=== PATIENT | male | born 1950 | race Caucasian/White ===

== ENCOUNTER → 2022-05-12 | Outpatient (CLI) | payer MEDICARE ==
[~2022-05-12] MED LIST: GLIPIZIDE2.5 MG PO; HYDROCHLOROTHIA25 M1 PO; LOTREL 10-40 M1 EACH PO; METFORMIN HYDR750 MG PO; PREDNISONE10 MG PO; ROSUVASTATIN CAL5 MG PO; TAMSULOSIN HCL0.4 MG PO
== END | disposition home or self-care (01) ==
LOC: TELEHEALTH 00:45
PROVIDERS: ATTEND Internal Medicine Infectious Disease
DX: A41.9 Sepsis, unspecified organism (principal); D72.829 Elevated white blood cell count, unspecified; I10 Essential (primary) hypertension; E11.9 Type 2 diabetes mellitus without complications; N40.0 Benign prostatic hyperplasia without lower urinary tract symptoms; E78.5 Hyperlipidemia, unspecified; Z79.899 Other long term (current) drug therapy

== ENCOUNTER → 2022-06-23 | Outpatient (CLI) | payer MEDICARE | END | disposition home or self-care (01) | LOC: TELEHEALTH 00:56 | PROVIDERS: ATTEND Internal Medicine Infectious Disease | DX: B27.90 Infectious mononucleosis, unspecified without complication (principal); I10 Essential (primary) hypertension; E78.5 Hyperlipidemia, unspecified; E11.9 Type 2 diabetes mellitus without complications; Z79.899 Other long term (current) drug therapy ==